=== PATIENT | male | born 1980 | race Two or more races ===

== ENCOUNTER 2022-04-27 20:32 | Emergency (ER) | payer SELFPAY ==
[~2022-04-27] VITALS: Ht 182.9 cm; Wt 136.1 kg
[2022-04-27 20:43] VITALS: BP 142/80
[2022-04-27] MEDS ORDERED: TDAP [DIPH/PERTUSSIS/TET] 0.5 ML VIAL IM ONE ×2 (21:00→21:35)
[2022-04-27] MEDS ORDERED: HYDROCODONE/APAP 5/325MG TABLET PO ONE (21:00)
[2022-04-27] MEDS ORDERED: SULF1TAB48 PO (21:20)
[2022-04-27] MEDS ORDERED: IBUP-1955 PO (21:22)
[2022-04-27] MEDS ORDERED: HYDROCODONE/APAP 5/325MG TABLET ONE (21:35)
--- NOTE | 2022-04-27 21:39 | NUR ---
Patient discharged to home in stable condition. Written and verbal after care instructions given. Patient verbalizes understanding of instruction. pt ambulatory with a steady gait
== END 2022-04-27 21:55 | disposition home or self-care (01) ==
LOC: ER 20:34
DX: S31.119A Laceration without foreign body of abdominal wall, unspecified quadrant without penetration into peritoneal cavity, initial encounter (principal); Z60.2 Problems related to living alone; Z79.899 Other long term (current) drug therapy; X99.1XXA Assault by knife, initial encounter; Y93.89 Activity, other specified; Y92.89 Other specified places as the place of occurrence of the external cause; Y99.8 Other external cause status
CPT/HCPCS: 90715

== ENCOUNTER 2022-04-30 11:45 | Emergency (ER) | payer SELFPAY ==
[~2022-04-30] VITALS: Ht 182.9 cm; Wt 136.1 kg
[~2022-04-30 11:45] MED LIST: IBUP-1955 PO; SULF1TAB48 PO
[2022-04-30 12:05] VITALS: BP 125/75
--- NOTE | 2022-04-30 12:10 | NUR ---
[facility] FOR WOUND/STAPLE CHECK, WAS DONE HERE 3DAYS AGO. DENIES PAIN. NO S/S INFECTION NOTED. WILL CONTINUE TO MONITOR THE PATIENT.
[2022-04-30] MEDS ORDERED: CEPH500C2 PO (12:23)
--- NOTE | 2022-04-30 12:44 | NUR ---
Patient discharged to home in stable condition. Written and verbal after care instructions given. Patient verbalizes understanding of instruction.
== END 2022-04-30 12:44 | disposition home or self-care (01) ==
LOC: ER 11:53
DX: S31.119D Laceration without foreign body of abdominal wall, unspecified quadrant without penetration into peritoneal cavity, subsequent encounter (principal); Z60.2 Problems related to living alone; X58.XXXD Exposure to other specified factors, subsequent encounter

== ENCOUNTER 2022-05-08 16:31 | Emergency (ER) | payer SELFPAY ==
[~2022-05-08] VITALS: Ht 182.9 cm; Wt 147.4 kg
[~2022-05-08 16:31] MED LIST changes: +CEPH500C2 PO
[2022-05-08 17:08] VITALS: BP 110/67
--- NOTE | 2022-05-08 18:15 | NUR ---
[place] taken out wound clean/dry. No bleeding
--- NOTE | 2022-05-08 18:24 | NUR ---
Patient discharged to home in stable condition. Written and verbal after care instructions given. Patient verbalizes understanding of instruction.
== END 2022-05-08 18:24 | disposition home or self-care (01) ==
LOC: ER 16:33
DX: S31.119D Laceration without foreign body of abdominal wall, unspecified quadrant without penetration into peritoneal cavity, subsequent encounter (principal); Z60.2 Problems related to living alone; X58.XXXD Exposure to other specified factors, subsequent encounter